=== PATIENT | female | born 2000 ===

== ENCOUNTER 2018-01-08 01:35 | Emergency (ER) | payer SELFPAY ==
--- NOTE | 2018-01-08 02:25 | ED ---
Substance Abuse/Use - HPI Summary HPI Summary: 16 year old F BIB EMS to [facility] complains of ETOH intoxication. Symptoms aggravated by nothing. Symptoms alleviated by nothing. Patient admits to drinking tequila. LEVEL 5 CAVEAT: HPI is limited because patient is intoxicated - History Of Current Complaint Chief Complaint: EDSubstanceAbuse Stated Complaint: ETOH Time Seen by Provider: 01/08/18 01:46 Hx Obtained From: Patient Aggravating Factor(s): Nothing Alleviating Factor(s): Nothing PMH/Surg Hx/FS Hx/Imm Hx Previously Healthy: No - LEVEL 5 CAVEAT: PMHx is limited because patient is intoxicated - Surgical History Surgery Procedure, Year, and Place: LEVEL 5 CAVEAT: Surgical hx is limited because patient is intoxicated Infectious Disease History: Unable to Obtain/Confirm Infectious Disease History: Denies: Traveled Outside the [place] in Last 30 Days - Family History Family History: LEVEL 5 CAVEAT: Fhx is limited because patient is intoxicated - Social History Alcohol Use: Occasionally Hx Substance Use: No Substance Use Type: Reports: None Hx Tobacco Use: No Smoking Status (MU): Never Smoked Tobacco Review of Systems - ROS Summary Review of Systems Summary: LEVEL 5 CAVEAT: ROS is limited because patient is intoxicated Positive: Other - ETOH intoxication All Other Systems Reviewed And Are Negative: No Physical Exam - Summary Physical Exam Summary: VITAL SIGNS: Reviewed. GENERAL: Patient is a well-developed and nourished female who is lying comfortable in the stretcher. Patient is not in any acute respiratory distress. HEAD AND FACE: No signs of trauma. No ecchymosis, hematomas or skull depressions. No sinus tenderness. EYES: PERRLA, EOMI x 2, No injected conjunctiva, no nystagmus. EARS: Hearing grossly intact. Ear canals and tympanic membranes are within normal limits. MOUTH: Oropharynx within normal limits. NECK: Supple, trachea is midline, no adenopathy, no JVD, no carotid bruit, no c- spine tenderness, neck with full ROM. CHEST: Symmetric, no tenderness at palpation LUNGS: Clear to auscultation bilaterally. No wheezing or crackles. CVS: Regular rate and rhythm, S1 and S2 present, no murmurs or gallops appreciated. ABDOMEN: Soft, non-tender. No signs of distention. No rebound no guarding, and no masses palpated. Bowel sounds are normal. EXTREMITIES: FROM in all major joints, no edema, no cyanosis or clubbing. NEURO: Patient is responsive, but slow SKIN: Dry and warm Triage Information Reviewed: Yes Vital Signs On Initial Exam: Initial Vitals Pulse BP Pulse Ox 82 105/72 100 01/08/18 01:48 01/08/18 01:48 01/08/18 01:48 Vital Signs Reviewed: Yes Diagnostics - Vital Signs Vital Signs Temp Pulse Resp BP Pulse Ox 01/08/18 02:00 74 100 01/08/18 01:58 74 100 01/08/18 01:53 98.6 F 78 18 129/84 98 01/08/18 01:48 82 105/72 100 - Laboratory Lab Statement: Any lab studies that have been ordered have been reviewed, and results considered in the medical decision making process. Course/Dx - Course Course Of Treatment: 16 y/o F BIB EMS complains of ETOH intoxication. Patient will be signed out to Dr. Garcia, awaiting soberity before discharge home. - Diagnoses Provider Diagnoses: Alcohol intoxication Discharge - Sign-Out/Discharge Documenting (check all that apply): Sign-Out Patient Signing out patient TO: Tres Garcia - Awaiting soberity before discharge home - Discharge Plan Condition: Stable Patient Education Materials: Alcohol Intoxication (ED) Referrals: [facility] [Outside] - 1 Day Additional Instructions: RETURN TO THE EMERGENCY DEPARTMENT FOR CHANGING OR WORSENING SYMPTOMS. FOLLOW UP WITH A PRIMARY CARE PROVIDER IN 1 DAY. - Attestation Statements Document Initiated by Scribe: Yes Documenting Scribe: Nhung Leo Provider For Whom Scribe is Documenting (Include Credential): Surya Briseno MD Scribe Attestation: Nhung Velasoc, scribed for Surya Briseno MD on 01/08/18 at 0636.
[2018-01-08] MEDS ORDERED: Ondansetron ODT TAB* 4 MG PO ONE (08:22)
--- NOTE | 2018-01-08 08:25 | ED ---
Progress - Progress Note Progress Note: This patient was signed out from Dr. Briseno awaiting sobriety. Pt will be held in the ED until her ride arrives. Re-Evaluation - Re-Evaluation First Eval Re-Evaluation Time: 08:22 Comment: Patient is feeling nauseous, zofran will be given. Second Eval Re-Evaluation Time: 08:57 Change: Improved Comment: Pt is feeling better, is up walking, and her ride is here Course/Dx - Course Course Of Treatment: Mika was reevaluated in the morning and was clinically sober. She was up moving about and her friends came to give her a ride back. - Diagnoses Provider Diagnoses: Alcohol intoxication Discharge - Sign-Out/Discharge Documenting (check all that apply): Patient Departure, Receiving Sign-Out Receiving patient FROM: Surya Briseno - Discharge Plan Condition: Stable Disposition: HOME Patient Education Materials: Alcohol Intoxication (ED) Referrals: [facility] [Outside] - 1 Day Additional Instructions: RETURN TO THE EMERGENCY DEPARTMENT FOR CHANGING OR WORSENING SYMPTOMS. FOLLOW UP WITH A PRIMARY CARE PROVIDER IN 1 DAY. - Billing Disposition and Condition Condition: STABLE Disposition: Home - Attestation Statements Document Initiated by Scribe: Yes Documenting Scribe: Tay Sheppard Provider For Whom Fernandoibdebora is Documenting (Include Credential): Tres Garcia Scribdebora Attestation: Tay Velasco, sabased for Tres Garcia on 01/08/18 at 1843. Scribe Documentation Reviewed: Yes Provider Attestation: The documentation as recorded by the Tay polanco accurately reflects the service I personally performed and the decisions made by me, Tres Garcia
[2018-01-08 09:04] VITALS: BP 122/89
== END 2018-01-08 09:03 | disposition home or self-care (01) ==
LOC: ED 01:35 → EDBD 01:35 → ED 09:03
DX: F10.129 Alcohol abuse with intoxication, unspecified (principal)
CPT/HCPCS: 99282; 99284; A9270-GY